=== PATIENT | female | born 1965 | race Caucasian/White ===

== ENCOUNTER 2018-03-24 13:29 | Emergency (ER) | payer OTHER ==
[2018-03-24] MEDS ORDERED: Ondansetron 4 MG Tab.DIS PO ONE (14:05)
[2018-03-24] MEDS ORDERED: Ketorolac 60 MG/2 ML SDV IM ONE (14:05)
--- NOTE | 2018-03-24 14:15 | EDM.PDOC ---
ED HPI GENERAL MEDICAL PROBLEM - General Chief Complaint: Abdominal Pain Stated Complaint: RT SIDE PAIN Time Seen by Provider: 03/24/18 13:45 Source of Information: Reports: Patient History Limitations: Reports: No Limitations - History of Present Illness INITIAL COMMENTS - FREE TEXT/NARRATIVE: c/o R flank pain x 3d pt has had intermittent R flank pain x 3d has h/o kidney stones went to walk-in clinic 3d ago and had neg w/u including u/a, CT abd/pelvis without, CBC, CMP, CRP, trop felt fine today, ate a fiber bar for bfast, went to work this AM, went to [employer] for lunch, ate a small piece of meatloaf and a small salad from salad bar , felt fine while eating, 20 minutes after eating she had cramping pain in R side at same spot as before, no radiation holding hand over R groin when I entered room, pain now x 1.5h, getting worse, now with some N, no V no f/c/d, nl BMs, otherwise in good health right upper abdomen Pain Score (Numeric/FACES): 6 - Related Data Allergies Allergy/AdvReac Type Severity Reaction Status Date / Time nitrofurantoin Allergy Numbness Verified 03/24/18 14:10 [From Macrobid] nitrofurantoin Allergy Numbness Verified 03/24/18 14:10 macrocrystalline [From Macrobid] Home Meds: Home Meds Aspirin 81 mg PO DAILY 03/21/13 [History] Cholecalciferol (Vitamin D3) [Vitamin D3] 1 cap PO DAILY 03/21/13 [History] Citalopram Hydrobromide [Celexa] 40 mg PO DAILY 03/21/13 [History] Diltiazem HCl [Diltiazem 24Hr ER] 120 mg PO BID 03/21/13 [History] Multivitamin [Multivitamins] 1 each PO DAILY 03/21/13 [History] Nitroglycerin 0.4 mg SL ASDIRECTED 03/21/13 [History] [place]-3 Fatty Acids [Fish Oil] 1,000 mg PO DAILY 03/21/13 [History] Omeprazole 20 mg PO BID 03/21/13 [History] Spironolactone 100 mg PO BID 03/21/13 [History] buPROPion HCl [buPROPion SR] 150 mg PO BID 03/21/13 [History] Dicyclomine HCl [Bentyl] 10 mg PO Q6H PRN #16 capsule 03/24/18 [Rx] Minocycline [Minocin] 100 mg PO BID 03/24/18 [History] traMADol [Ultram] 50 mg PO Q6H PRN #10 tab 03/24/18 [Rx] ED ROS GENERAL - Review of Systems Review Of Systems: See Below Constitutional: Reports: No Symptoms HEENT: Reports: No Symptoms Respiratory: Reports: No Symptoms Cardiovascular: Reports: No Symptoms Endocrine: Reports: No Symptoms GI/Abdominal: Reports: Abdominal Pain, Nausea : Reports: No Symptoms Musculoskeletal: Reports: No Symptoms Skin: Reports: No Symptoms Neurological: Reports: No Symptoms Psychiatric: Reports: No Symptoms Hematologic/Lymphatic: Reports: No Symptoms Immunologic: Reports: No Symptoms ED EXAM, RENAL/ - Physical Exam Exam: See Below Exam Limited By: No Limitations General Appearance: Alert, WD/WN, Mild Distress Nose: Normal Inspection Throat/Mouth: Normal Inspection, Normal Voice Head: Atraumatic, Normocephalic Neck: Normal Inspection Respiratory/Chest: No Respiratory Distress, Lungs Clear, Normal Breath Sounds, No Accessory Muscle Use, Chest Non-Tender Cardiovascular: Regular Rate, Rhythm, No Edema, No Gallop, No JVD, No Murmur, No Rub GI/Abdominal: Normal Bowel Sounds, Soft, No Organomegaly, No Distention, No Mass , Tender, Other (nl BS x 4, soft, ND, no HSM, no mass, NT except slight tender at R inguinal area and inc'd 1+ tender at R flank to deep palpation only, no CVAT b/l). No: Guarding, Rigid, Rebound, Abnormal Bowel Sounds, Hernia, Mass, Hepatomegaly, Splenomegaly Back Exam: Normal Inspection, Full Range of Motion. No: CVA Tenderness (R), CVA Tenderness (L) Extremities: Normal Inspection, Normal Range of Motion, Non-Tender, No Pedal Edema Neurological: Alert, Oriented, CN II-XII Intact, Normal Cognition, No Motor/ Sensory Deficits, Other (walks slight bend over from pain) Psychiatric: Normal Affect, Normal Mood Skin Exam: Warm, Dry, Intact, Normal Color, No Rash Lymphatic: No Adenopathy Course - Vital Signs Last Recorded V/S: Last Vital Signs Temp 36.7 C 03/24/18 13:45 Pulse 94 03/24/18 13:45 Resp 17 03/24/18 13:45 BP 147/86 H 03/24/18 13:45 Pulse Ox 99 03/24/18 13:45 - Orders/Labs/Meds Orders: Active Orders 24 hr Category Date Time Status Dicyclomine [Bentyl] Med 03/24/18 15:00 Once 10 mg PO ONETIME ONE Medication Orders Dicyclomine HCl (Bentyl) 10 mg PO ONETIME ONE Stop: 03/24/18 15:01 Labs: Laboratory Tests 03/24/18 Range/Units 14:14 Urine Color Yellow (YELLOW) Urine Appearance Slightly cloudy (CLEAR) Urine pH 6.5 (5.0-6.5) Ur Specific [place] 1.015 (1.010-1.025) Urine Protein Negative (NEGATIVE) mg/dL Urine Glucose (UA) Normal (NEGATIVE) mg/dL Urine Ketones Negative (NEGATIVE) mg/dL Urine Occult Blood Large H (NEGATIVE) Urine Nitrite Negative (NEGATIVE) Urine Bilirubin Negative (NEGATIVE) Urine Urobilinogen Normal (NEGATIVE) mg/dL Ur Leukocyte Esterase Negative (NEGATIVE) Urine RBC 5-10 (0) Urine WBC 0-5 (0) Ur Squamous Epith Cells Few H (NS,R,O) Urine Bacteria Few H (NS) Urine Mucus Few H (NS) Meds: Medications Generic Name Dose Route Start Last Admin Trade Name Freq PRN Reason Stop Dose Admin Dicyclomine HCl 10 mg 03/24/18 15:00 Bentyl PO 03/24/18 15:01 ONETIME ONE Discontinued Medications Generic Name Dose Route Start Last Admin Trade Name Freq PRN Reason Stop Dose Admin Ketorolac Tromethamine 60 mg 03/24/18 14:05 03/24/18 14:10 Toradol IM 03/24/18 14:06 60 mg ONETIME ONE Administration Ondansetron HCl 4 mg 03/24/18 14:05 03/24/18 14:10 Zofran Odt PO 03/24/18 14:06 4 mg ONETIME ONE Administration - Re-Assessments/Exams Free Text/Narrative Re-Assessment/Exam: 03/24/18 15:09 u/a shows 5-10 RBC/hpf, suggesting a small ureteral stone that was not seen on CT 2d ago. However, pt showed only limited improvement after Toradol IM (pain dec'd 02/05 to 12/06) and states that "a shot in my butt" did not help at walk-in clinic 2d ago (and that the pain gradually subsided several hours later) States that the pain seems to occur after she eats lunch, which would go against renal colic. Review of CT showed a plug of stool at the hepatic flexure and additional stool in the transverse colon. Pt now reports that this cramping pain began after a colonoscopy on 12/25/17. Her BMs have been irregular, small today, not sure if she had a BM yesterday. Differential includes IBS and renal colic. Departure - Departure Time of Disposition: 15:01 Disposition: Home, Self-Care 01 Condition: Fair Clinical Impression: Abdominal pain, Microscopic hematuria - Discharge Information *PRESCRIPTION DRUG MONITORING PROGRAM REVIEWED*: Not Applicable *COPY OF PRESCRIPTION DRUG MONITORING REPORT IN PATIENT DENISE: Not Applicable Prescriptions: Dicyclomine HCl [Bentyl] 10 mg PO Q6H PRN #16 capsule PRN Reason: Abdominal Pain traMADol [Ultram] 50 mg PO Q6H PRN #10 tab PRN Reason: Abdominal Pain Instructions: Flank Pain, Adult Referrals: Lukas Brown MD [Primary Care Provider] - Forms: ED Department Discharge Additional Instructions: For pain, take ibuprofen 200 mg 3 tabs and acetaminophen 500 mg 2 tabs 4 times a day for 2 days, longer if needed. For spasm, take dicyclomine 10 mg 1 tab every 6 hours as needed. For pain, take tramadol 50 mg 1 tab every 6 hours as needed. No alcohol. Soak in a warm tub for 10-15 minutes every few hours as needed. To clean out the colon, drink a 10-ounce bottle of magnesium citrate tonight and a second bottle tomorrow. See Dr Bird in 5 days as scheduled. Return to ED if your pain is not controlled at home or your develop new symptoms. - My Orders Last 24 Hours: My Active Orders 03/24/18 15:00 Dicyclomine [Bentyl] 10 mg PO ONETIME ONE - Assessment/Plan Last 24 Hours: My Active Orders 03/24/18 15:00 Dicyclomine [Bentyl] 10 mg PO ONETIME ONE
[2018-03-24] MEDS ORDERED: Dicyclomine 10 MG Cap PO ONE (15:00)
[2018-03-24 15:17] VITALS: BP 135/91
== END 2018-03-24 15:16 | disposition home or self-care (01) ==
LOC: FB.ED 13:29
DX: R31.29 Other microscopic hematuria (principal); R10.9 Unspecified abdominal pain; Z88.8 Allergy status to other drugs, medicaments and biological substances; Z79.82 Long term (current) use of aspirin; Z79.899 Other long term (current) drug therapy
CPT/HCPCS: 81001; 96372; 99284; A9270; J1885